=== PATIENT | male | born 2000 | race Asian ===

== ENCOUNTER 2019-03-01 20:22 | Emergency (ER) | payer OTHER ==
[2019-03-01 20:39] VITALS: BP 118/74
--- NOTE | 2019-03-01 21:22 | UC ---
GI Bleed HPI - HPI Summary HPI Summary: PATIENT HAS HAD INTERMITTENT BRIGHT RED BLOOD PER RECTUM FOR ABOUT A YEAR GETTING WORSE OVER THE PAST 2 WEEKS, WHERE HE IS HAVING EPISODES ALMOST EVERY DAY. DENIES CONSTIPATION OR DIARRHEA BUT STATES HE DOES SOMETIMES HAVE BLOOD- STREAKED STOOLS AND SOMETIMES THE BLOOD DRIPS OUT OF HIS RECTUM. NO FEVER. DOES ALSO HAVE LOWER ABDOMINAL PAIN BUT DENIES URINARY SYMPTOMS. DENIES ANY SEXUAL ACTIVITY OR ANAL PENETRATIVE ACTIVITIES. DENIES ANY NSAID USE. - History Of Current Complaint Chief Complaint: UCAbdominalPain Stated Complaint: STOMACH PAIN Time Seen by Provider: 03/01/19 20:42 Hx Obtained From: Patient Onset/Duration: Gradual Onset, Still Present Timing: Constant Severity: Blood-Streaked Stool, Bright Red Blood per Rectum Severity Initially: Moderate Severity Currently: Moderate Pain Intensity: 5 Pain Scale Used: 0-10 Numeric Character: Dull - abdominal pain Associated Signs And Symptoms: Positive: Negative - Allergies/Home medications Allergies/Adverse Reactions: Allergies Allergy/AdvReac Type Severity Reaction Status Date / Time No Known Allergies Allergy Verified 03/01/19 20:39 Home Medications: Home Medications NK [No Home Medications Reported] 03/01/19 [History Confirmed 03/01/19] PMH/Surg Hx/FS Hx/Imm Hx Previously Healthy: Yes - Surgical History Surgical History: None - Family History Known Family History: Positive: Non-Contributory - Social History Alcohol Use: Occasionally Substance Use Type: None Smoking Status (MU): Never Smoked Tobacco Review of Systems All Other Systems Reviewed And Are Negative: Yes Constitutional: Positive: Negative Skin: Positive: Negative Respiratory: Positive: Negative Cardiovascular: Positive: Negative Gastrointestinal: Positive: Abdominal Pain, Other - BRBPR Genitourinary: Positive: Negative Physical Exam Triage Information Reviewed: Yes Appearance: Well-Appearing, No Pain Distress, Well-Nourished Vital Signs: Initial Vital Signs Temp 98.8 F 03/01/19 20:34 Pulse 77 03/01/19 20:34 Resp 18 03/01/19 20:34 BP 118/74 03/01/19 20:34 Pulse Ox 95 03/01/19 20:34 Laboratory Tests 03/01/19 21:20 POC Urine Color Light yellow POC Urine Clarity Clear POC Urine pH 7.0 POC Ur Specif [place] 1.015 POC Urine Protein Negative POC Ur Glucose (UA) Negative POC Urine Ketones Negative POC Urine Blood Negative POC Urine Nitrite Negative POC Urine Bilirubin Negative POC Urine Urobilinogen 0.2 POC U Leukocyte Esteras Negative Vital Signs Reviewed: Yes Eyes: Positive: Conjunctiva Clear ENT: Positive: Hearing grossly normal Neck: Positive: Supple Respiratory Exam: Normal Cardiovascular Exam: Normal Abdomen Description: Positive: Soft, Other: - SUPRAPUBIC AND RLQ TENDERNESS. NO REBOUND OR RIGIDITY. Negative: CVA Tenderness (R), CVA Tenderness (L), Distended, Guarding Musculoskeletal: Positive: No Edema Neurological: Positive: Alert Psychological: Positive: Age Appropriate Behavior Skin: Negative: Rashes UC Physical Exam Vital Signs On Initial Exam: Initial Vitals Temp Pulse Resp BP Pulse Ox 98.8 F 77 18 118/74 95 03/01/19 20:34 03/01/19 20:34 03/01/19 20:34 03/01/19 20:34 03/01/19 20:34 - Rectal Exam Rectal Exam: Normal Rectal Tone, Non-tender, No Mass, Heme Positive Stool Bleed Course/Dx - Course Course Of Treatment: BRIGHT RED BLOOD ON DIGITAL RECTAL EXAM. NO EXTERNAL HEMORRHOIDS. NO FISSURES OR LESIONS VISIBLE. DISCUSSED LAB WORK TODAY BUT PATIENT DECLINES PREFERRING TO WAIT FOR GI EVALUATION. ADVISED TO CALL [facility] Sunday. GO TO THE ER WITHOUT FAIL IF SYMPTOMS WORSEN. - Differential Dx/Diagnosis Provider Diagnosis: Bright red blood per rectum Discharge ED - Sign-Out/Discharge Documenting (check all that apply): Patient Departure All imaging exams completed and their final reports reviewed: No Studies - Discharge Plan Condition: Stable Disposition: HOME Patient Education Materials: Rectal Bleeding (ED) Referrals: [facility] [Provider Group] - If Needed [facility] [Provider Group] - 2 Days Additional Instructions: DIGITAL RECTAL EXAM POSITIVE FOR BLOOD. URINE DIP UNREMARKABLE. YOU NEED SPECIALIST EVALUATION. [facility] Sunday TO SCHEDULE AN APPOINTMENT. GO TO THE ER WITHOUT FAIL IF YOU DEVELOP WORSENING IVÁN BLOOD PER RECTUM, FEVER, WORSENING ABDOMINAL PAIN, SHORTNESS OF BREATH, CHEST PAIN, DIZZINESS, NAUSEA OR ANY OTHER CONCERNING SYMPTOMS. - Billing Disposition and Condition Condition: STABLE Disposition: Home
== END 2019-03-01 21:40 | disposition home or self-care (01) ==
LOC: UCEAST 20:22
DX: K62.5 Hemorrhage of anus and rectum (principal); R10.31 Right lower quadrant pain
CPT/HCPCS: 81003; 99201; G0463